=== PATIENT | male | born 1945 | race Caucasian/White ===

== ENCOUNTER 2025-01-14 10:32 | Inpatient (IN) | payer BC, MEDICARE ==
[~2025-01-14] VITALS: Ht 172.7 cm; Wt 31.0 kg
[2025-01-14] MEDS: SODIUM CHLORIDE 0.9% (SEPSIS BOLUS) IV ONE (11:17)
[2025-01-14] MEDS: PIPERACILLIN/TAZO 3.375G/50ML 50 ML IV ONE (11:17)
[2025-01-14 11:27] LABS: BASOPHILS % 0.3 % (0.0-2.0); EOSINOPHILS % 1.5 % (0.0-5.0); HEMATOCRIT. 23.0 % (42.0-52.0); HEMOGLOBIN. 7.6 g/dL (14.0-18.0); LYMPHOCYTES % 12.8 % (20.0-50.0); MEAN PLATELET VOLUME 8.6 fl (7.4-10.4); MONOCYTES % 8.7 % (2.0-8.0); NEUTROPHILS % 76.7 % (40.0-76.0); PLATELET 75 x1000/uL (130-400); RED BLOOD CELL COUNT 2.37 mill/uL (4.7-6.1); RED CELL DISTRIBUTION WIDTH 20.6 % (11.6-14.6)
[2025-01-14 11:34] LABS: INR 1.3
[2025-01-14 11:39] LABS: CREATININE 1.3 mg/dL (0.6-1.3); UREA NITROGEN BLOOD 37 mg/dL (9-23)
[2025-01-14 11:41] LABS: ASPARTATE AMINOTRANSFERASE 130 IU/L (<34); BILIRUBIN DIRECT 0.9 mg/dL (<=3.0); BILIRUBIN TOTAL 1.5 mg/dL (0.1-1.0); PROTEIN TOTAL 4.3 g/dL (6.0-8.3)
[2025-01-14] MEDS: VANCOMYCIN 1G PREMIX 200 ML IV ONE (11:50)
[2025-01-14] MEDS: MORPHINE SULFATE 4 MG/ML INJ (FOR IV/IM USE) IV ONE (12:04)
[2025-01-14] MEDS ORDERED: MAGNESIUM/ALUMINUM HYDROXIDE/SIMETHICONE 30ML UDC PO PRN (15:15)
[2025-01-14] MEDS ORDERED: CLONIDINE 0.1MG TABLET PO PRN (15:15)
[2025-01-14] MEDS ORDERED: ACETAMINOPHEN 325MG TABLET PO PRN ×2 (15:15)
[2025-01-14] MEDS ORDERED: ENOXAPARIN 40MG/0.4ML SYR SUBCUT SCH (15:15)
[2025-01-14] MEDS ORDERED: GUAIFENESIN 200MG/10ML SUGAR FREE UDC PO PRN (15:15)
[2025-01-14] MEDS ORDERED: CEFTRIAXONE 1GM/50ML 100 ML IV SCH (15:30)
[2025-01-14] MEDS: AZITHROMYCIN 500MG/250ML 250 ML IV SCH (16:16)
[2025-01-14] MEDS: ENOXAPARIN 30MG/0.3ML SYR SUBCUT SCH (17:00)
[2025-01-14] MEDS: IPRATROPIUM/ALBUTEROL 0.5-3(2.5)MG/3ML NEB HHN PRN (17:33)
[2025-01-14 17:36] VITALS: PULSE 109; RESP 20; O2SAT 92
[2025-01-14 17:49] VITALS: BP 102/60; PULSE 103; RESP 20; TEMP 36.4; O2SAT 95
[2025-01-14 17:54] VITALS: BP 102/60; PULSE 103; RESP 20; TEMP 36.4736
[2025-01-14] MEDS: SODIUM CHLORIDE 0.9% 1,000 ML IV SCH (18:37)
[2025-01-14] MEDS: CEFTRIAXONE 1GM/50ML 100 ML IV SCH (21:04)
[2025-01-14] MEDS: DOCUSATE SODIUM 100MG CAPSULE PO PRN (21:12)
[2025-01-15] VITALS (62 sets, daily range): BP systolic 31–149; BP diastolic 13–123; PULSE 98–130; RESP 18–29; O2SAT 95–100
[2025-01-15] MEDS ORDERED: VASOPRESSIN 20 UNIT in SODIUM CHLORIDE 0.9% 99 ML IV PRN (04:45)
[2025-01-15] MEDS ORDERED: NOREPINEPHRINE 8MG/250ML PMX 250 ML IV PRN (04:45)
[2025-01-15] MEDS ORDERED: SODIUM CHLORIDE 0.9% 1,000 ML IV SCH (05:00)
[2025-01-15] MEDS: PHENYLEPHRINE 50MG/250ML PMX 250 ML IV PRN (05:22)
[2025-01-15] MEDS ORDERED: FENTANYL CITRATE 2,500 MCG in SODIUM CHLORIDE 0.9% 200 ML IV PRN (05:30)
[2025-01-15] MEDS ORDERED: FENTANYL 2500MCG/250ML PMX 250 ML IV ONE (05:30)
[2025-01-15] MEDS ORDERED: MIDAZOLAM 100MG/100ML PMX 100 ML IV PRN (05:30)
[2025-01-15] MEDS: NOREPINEPHRINE 8MG/250ML PMX 250 ML IV PRN (06:09)
[2025-01-15] MEDS: VASOPRESSIN 20 UNIT in SODIUM CHLORIDE 0.9% 99 ML IV PRN (06:24)
[2025-01-15] MEDS: IPRATROPIUM/ALBUTEROL 0.5-3(2.5)MG/3ML NEB NEB SCH (08:06)
[2025-01-15] MEDS: VANCOMYCIN 1GM/200ML PMX (BAXTER) IV SCH (08:47)
[2025-01-15] MEDS: PANTOPRAZOLE SODIUM 40 MG/VIAL IV SCH (08:47)
[2025-01-15 09:11] LABS: BG BASE EXCESS -21.9 mmol/L (-2.0-3.0); BG CARBOXYHEMOGLOBIN 1.6 % (0.5-1.5); BG DEOXYHEMOGLOBIN 0.3 % (0.0-5.0); BG FRACTION INSPIRED OXYGEN 100; BG HCO3 ACT 7.2 mmol/L (21.0-28.0); BG METHEMOGLOBIN 0.4 % (0.5-1.5); BG OXYGEN SATURATION 99.7 % (94.0-98.0); BG OXYHEMOGLOBIN 97.7 % (94.0-98.0); BG PCO2 27.9 mmHg (35.0-48.0); BG PEEP (cmH2O) 5.0 cmH2O; BG PH 7.028 (7.350-7.450); BG PO2 330.1 mmHg (83.0-108.0); BG SAMPLE SITE RIGHT BRACHIAL; BG TIDAL VOLUME(mL) 500.0 mL; BG TOTAL HEMOGLOBIN 7.5 g/dL (13.5-17.5); BG TOTAL RESPIRATORY RATE 22 b/min; BG VENT MODE VENT - AC; BG VENT RATE 18.0 set
[2025-01-15] MEDS: SODIUM BICARBONATE 8.4% 50MEQ/50ML SYR IV NR ×2 (10:23→11:44)
[2025-01-15] MEDS ORDERED: PHENYLEPHRINE 100 MG in DEXT 5% WATER 240 ML IV PRN (11:30)
[2025-01-15 11:59] LABS: BG DEOXYHEMOGLOBIN 15.4 % (0.0-5.0)
[2025-01-15 12:02] LABS: BASOPHILS % 0.1 % (0.0-2.0); EOSINOPHILS % 0.1 % (0.0-5.0); LYMPHOCYTES % 7.4 % (20.0-50.0); MEAN PLATELET VOLUME 9.3 fl (7.4-10.4); MONOCYTES % 3.9 % (2.0-8.0); NEUTROPHILS % 88.5 % (40.0-76.0); RED BLOOD CELL COUNT 1.85 mill/uL (4.7-6.1); RED CELL DISTRIBUTION WIDTH 21.0 % (11.6-14.6)
[2025-01-15 12:09] LABS: LDL CHOLESTEROL 28 mg/dL (5-100); TRIGLYCERIDE 88 mg/dL (0-150); UREA NITROGEN BLOOD 55 mg/dL (9-23)
[2025-01-15 12:10] LABS: ASPARTATE AMINOTRANSFERASE > 1000 IU/L (<34)
[2025-01-15 12:11] LABS: BILIRUBIN DIRECT 1.3 mg/dL (<=3.0); BILIRUBIN TOTAL 2.0 mg/dL (0.1-1.0); PROTEIN TOTAL 3.9 g/dL (6.0-8.3)
[2025-01-15 12:12] LABS: CREATININE 2.5 mg/dL (0.6-1.3); PHOSPHORUS 12.1 mg/dL (2.5-4.9)
[2025-01-15] MEDS: SODIUM BICARBONATE 8.4% 50MEQ/50ML SYR IV SCH (12:12)
[2025-01-15] MEDS ORDERED: DOPAMINE 400MG/250ML PREMIX 250 ML IV PRN (12:15)
[2025-01-15 12:16] LABS: FOLIC ACID (FOLATE) SERUM > 20.00 ng/mL (>5.38)
[2025-01-15 12:19] LABS: HEMATOCRIT. 19.2 % (42.0-52.0); HEMOGLOBIN. 5.8 g/dL (14.0-18.0); PLATELET 48 x1000/uL (130-400)
[2025-01-15] MEDS: SODIUM BICARBONATE 150 MEQ in SODIUM CHLORIDE 0.45% 850 ML IV SCH (12:21)
[2025-01-15 12:22] LABS: VITAMIN B12 SERUM > 2000 pg/mL (211-911)
[2025-01-15] MEDS: NOREPINEPHRINE 32 MG in DEXT 5% WATER 218 ML IV PRN (12:22)
[2025-01-15] MEDS: EPINEPHRINE 10 MG in SODIUM CHLORIDE 0.9% 240 ML IV PRN (12:24)
[2025-01-15] MEDS: DEXTROSE 50% WATER 50ML SYRINGE IV SCH (12:52)
[2025-01-15] MEDS: CALCIUM GLUCONATE 100MG/ML 10ML VIAL IV SCH ×2 (12:52→16:46)
[2025-01-15] MEDS: INSULIN REGULAR (HUMULIN R) 1000UNITS/10ML VIAL IV SCH (12:53)
[2025-01-15 13:44] LABS: CREATININE 2.6 mg/dL (0.6-1.3)
[2025-01-15 13:45] LABS: UREA NITROGEN BLOOD 51.0 mg/dL (9-23)
[2025-01-15 16:35] LABS: GLUCOSE URINE NEGATIVE (NEGATIVE); KETONES URINE TRACE (NEGATIVE); LEUKOCYTE ESTERASE URINE NEGATIVE (NEGATIVE); NITRITE URINE NEGATIVE (NEGATIVE); OCCULT BLOOD URINE 3+ (NEGATIVE); PH URINE 5.0 (4.5-8.0); PROTEIN URINE 1+ (NEGATIVE); SPECIFIC GRAVITY URINE 1.016 (1.005-1.030); UROBILINOGEN URINE 1.0 E.U./dL (0.2-1.0)
[2025-01-15 16:39] LABS: *AMPHETAMINES SCREEN URINE NEGATIVE (NEGATIVE); *BARBITURATES SCREEN URINE NEGATIVE (NEGATIVE); *BENZODIAZEPINES SCREEN URINE NEGATIVE (NEGATIVE); *COCAINE SCREEN URINE NEGATIVE (NEGATIVE)
[2025-01-15 16:40] LABS: CANNABINOID URINE SCREEN NEGATIVE (NEGATIVE); ECSTASY MDMA SCREEN URINE NEGATIVE (NEGATIVE); METHADONE URINE SCREEN NEGATIVE (NEGATIVE); OPIATES URINE SCREEN PRESUMPTIVE POSITIVE (NEGATIVE); PHENCYCLIDINE URINE SCREEN NEGATIVE (NEGATIVE)
[2025-01-15] MEDS: AZITHROMYCIN 500MG/250ML 250 ML IV SCH (16:40)
[2025-01-15 17:06] LABS: CLARITY URINE HAZY (CLEAR); COLOR URINE YELLOW (YELLOW)
[2025-01-15 17:07] LABS: WBC URINE 0-2 /hpf (0-2)
[2025-01-15 17:08] LABS: BACTERIA URINE 1+; MUCUS URINE TRACE /lpf (NONE/TRACE); RBC URINE 25-50 /hpf (0-2); SQUAMOUS EPITHELIAL CELL URINE RARE /lpf (RARE/1+)
== END 2025-01-15 17:24 | DRG 871 ==
LOC: ER 10:32 → 6WST 12:29 → EDBEDREQSVC 15:23 → MICUSO 01-15 04:56
PROVIDERS: ADMIT Family Medicine Adult Medicine; ATTEND Family Medicine Adult Medicine
PROC: 02HV33Z Insertion of Infusion Device into Superior Vena Cava, Percutaneous Approach (ICD-10-PCS; principal; 2025-01-15)
PROC: B548ZZA Ultrasonography of Superior Vena Cava, Guidance (ICD-10-PCS; 2025-01-15)
PROC: 0T9B70Z Drainage of Bladder with Drainage Device, Via Natural or Artificial Opening (ICD-10-PCS; 2025-01-15)
PROC: 0BH17EZ Insertion of Endotracheal Airway into Trachea, Via Natural or Artificial Opening (ICD-10-PCS; 2025-01-15)
PROC: 5A1935Z Respiratory Ventilation, Less than 24 Consecutive Hours (ICD-10-PCS; 2025-01-15)
DX: A41.9 Sepsis, unspecified organism (principal); G92.8 Other toxic encephalopathy; J18.9 Pneumonia, unspecified organism; R65.21 Severe sepsis with septic shock; J96.01 Acute respiratory failure with hypoxia; K72.00 Acute and subacute hepatic failure without coma; E87.20 Acidosis, unspecified; C78.7 Secondary malignant neoplasm of liver and intrahepatic bile duct; N17.9 Acute kidney failure, unspecified; E86.0 Dehydration; E88.09 Other disorders of plasma-protein metabolism, not elsewhere classified; D50.9 Iron deficiency anemia, unspecified; D69.6 Thrombocytopenia, unspecified; Z66 Do not resuscitate; C61 Malignant neoplasm of prostate; E87.5 Hyperkalemia; D50.8 Other iron deficiency anemias
CPT/HCPCS: 31720; 36415; 36600; 71045; 76700; 80048; 80061; 80076; 80305; 81003; 82140; 82375; 82607; 82728; 82746; 82803; 82805; 82962; 83540; 83550; 83605; 83735; 84100; 84145; 84425; 84443; 85025; 85379; 86850; 86900; 86920; 93005; 93970; 94002; 94070; 94640; 94664; 96365; 96367; 96375; 99291; A4606; J0456; J0612; J0696; J1815; J2270; J2371; J2470; J2543; J3373; J3490; J7030; J7050; J7060